=== PATIENT | female | born 1975 | race Caucasian/White ===

== ENCOUNTER 2021-12-02 09:50 | Inpatient (IN) | payer BC, OTHER ==
[~2021-12-02] VITALS: Ht 167.6 cm; Wt 66.1 kg
[2021-12-02 10:47] LABS: HEMATOCRIT 37.6 % (36.0-47.0); HEMOGLOBIN 12.3 g/dl (12.0-15.5); MEAN CORPUSCULAR HEMOGLOBIN 30.9 pg (27.0-33.0); MEAN CORPUSCULAR HGB CONC 32.7 g/dl (32.0-36.5); MEAN CORPUSCULAR VOLUME 94.5 fl (80.0-96.0); PLATELET COUNT, AUTOMATED 245 10^3/uL (150-450); RED BLOOD COUNT 3.98 10^6/uL (4.00-5.40); WHITE BLOOD COUNT 5.8 10^3/uL (4.0-10.0)
[2021-12-02 11:24] LABS: HCG, SERUM QUALITATIVE NEGATIVE (NEGATIVE)
[2021-12-02 11:44] LABS: ACETAMINOPHEN LEVEL < 2.0 UG/ML (10.0-30.0); ALBUMIN 3.8 GM/DL (3.2-5.2); ALT/SGPT 51 U/L (12-78); BILIRUBIN,DIRECT 0.1 MG/DL (0.0-0.2); BILIRUBIN,TOTAL 0.3 MG/DL (0.2-1.0); BLOOD UREA NITROGEN 10 MG/DL (7-18); CALCIUM LEVEL 9.1 MG/DL (8.5-10.1); CARBON DIOXIDE LEVEL 30 MEQ/L (21-32); CHLORIDE LEVEL 107 MEQ/L (98-107); CREATININE FOR GFR 0.84 MG/DL (0.55-1.30); ETHYL ALCOHOL (ETHANOL) < 0.003 % (0.000-0.010); GLOMERULAR FILTRATION RATE > 60.0 (>58); GLUCOSE, FASTING 157 MG/DL (70-100); POTASSIUM SERUM 4.1 MEQ/L (3.5-5.1); SODIUM LEVEL 141 MEQ/L (136-145); THYROID STIMULATING HORMONE 0.718 uIU/ML (0.358-3.740); TOTAL PROTEIN 6.9 GM/DL (6.4-8.2)
[2021-12-02 11:50] LABS: RSV AMPLIFICATION NEGATIVE (NEGATIVE)
[2021-12-02 16:14] LABS: AMPHETAMINES LEVEL URINE NEGATIVE (NEGATIVE); BARBITURATES URINE NEGATIVE (NEGATIVE); BENZODIAZEPINES URINE NEGATIVE (NEGATIVE); CANNABINOIDS URINE NEGATIVE (NEGATIVE); COCAINE METABOLITE URINE NEGATIVE (NEGATIVE); METHADONE URINE NEGATIVE (NEGATIVE); OPIATES URINE NEGATIVE (NEGATIVE); PHENCYCLIDINE URINE NEGATIVE (NEGATIVE)
[2021-12-03] MEDS ORDERED: IBUPROFEN 800 MG TAB PO ONE (04:40)
[2021-12-03] MEDS ORDERED: MULT-40 PO (07:04)
[2021-12-03] MEDS ORDERED: CALCTAB53 PO (07:04)
[2021-12-04] MEDS ORDERED: IBUPROFEN 800 MG TAB PO ONE (04:15)
[2021-12-04] MEDS ORDERED: MOM 30ML SUSPENSION UDC PO PRN (12:45)
[2021-12-04] MEDS ORDERED: MAALOX 30 ML SUSP *UDC PO PRN (12:45)
[2021-12-04] MEDS ORDERED: traZODone 50 MG TAB PO PRN (12:45)
[2021-12-04 15:22] VITALS: BP 130/65
[2021-12-04] MEDS: NICOTINE 21MG/24HR 1 EA TRANSDERMAL TD SCH (16:20)
[2021-12-04] MEDS: risperiDONE 1 MG TAB PO SCH (20:59)
[2021-12-04] MEDS: diphenhydrAMINE 25MG CAP PO PRN (21:00)
[2021-12-04] MEDS: IBUPROFEN 400MG TAB PO PRN (21:00)
[2021-12-04] MEDS: LORazepam 1 MG TAB PO PRN (23:58)
[2021-12-05 06:37] VITALS: BP 109/56
[2021-12-05] MEDS: risperiDONE 1 MG TAB PO SCH ×3 (09:00→20:18)
[2021-12-05] MEDS: NICOTINE 21MG/24HR 1 EA TRANSDERMAL TD SCH (09:55)
[2021-12-05 16:00] VITALS: BP 116/71
[2021-12-05 19:09] LABS: CHOLESTEROL RISK RATIO 2.453 (<5)
[2021-12-05] MEDS: diphenhydrAMINE 25MG CAP PO PRN (20:18)
[2021-12-06 06:40] VITALS: BP 90/53
[2021-12-06] MEDS: NICOTINE 21MG/24HR 1 EA TRANSDERMAL TD SCH (09:00)
[2021-12-06] MEDS: risperiDONE 1 MG TAB PO SCH ×2 (09:41→20:29)
[2021-12-06] MEDS ORDERED: PALIPERIDONE PAL 234MG/1.5ML INJ (INVEGA)(FREE PSY INPT ONLY) IM ONE (13:00)
[2021-12-06] MEDS: IBUPROFEN 400MG TAB PO PRN ×2 (13:31→20:29)
[2021-12-06 16:39] VITALS: BP 108/59
[2021-12-06] MEDS: LORazepam 1 MG TAB PO PRN (20:29)
[2021-12-06] MEDS: diphenhydrAMINE 25MG CAP PO PRN (21:13)
[2021-12-07 06:31] VITALS: BP 127/68
[2021-12-07] MEDS: risperiDONE 1 MG TAB PO SCH (09:00)
[2021-12-07] MEDS: NICOTINE 21MG/24HR 1 EA TRANSDERMAL TD SCH (09:45)
[2021-12-07 16:46] VITALS: BP 119/66
[2021-12-07] MEDS: diphenhydrAMINE 25MG CAP PO PRN (23:04)
[2021-12-08] MEDS: IBUPROFEN 400MG TAB PO PRN (04:19)
[2021-12-08 06:42] VITALS: BP 127/79
[2021-12-08] MEDS: NICOTINE 21MG/24HR 1 EA TRANSDERMAL TD SCH (09:00)
[2021-12-08 18:05] VITALS: BP 116/71
[2021-12-09] MEDS: diphenhydrAMINE 25MG CAP PO PRN ×2 (00:58→10:14)
[2021-12-09] MEDS: IBUPROFEN 400MG TAB PO PRN ×2 (00:59→10:17)
[2021-12-09] MEDS: LORazepam 1 MG TAB PO PRN ×2 (01:18→10:14)
[2021-12-09 06:25] VITALS: BP 103/59
[2021-12-09] MEDS: NICOTINE 21MG/24HR 1 EA TRANSDERMAL TD SCH (09:10)
[2021-12-09] MEDS ORDERED: PALIPERIDONE PAL 234MG/1.5ML INJ (INVEGA)(FREE PSY INPT ONLY) IM ONE (13:00)
[2021-12-09 18:04] VITALS: BP 145/61
[2021-12-09] MEDS: hydrOXYzine 50 MG TAB PO PRN (21:39)
[2021-12-10 06:20] VITALS: BP 118/71
[2021-12-10] MEDS: NICOTINE 21MG/24HR 1 EA TRANSDERMAL TD SCH (07:28)
[2021-12-10] MEDS: MULTIVITAMINS/MINERALS THERAP 1 TAB PO SCH (16:57)
[2021-12-10] MEDS: IBUPROFEN 400MG TAB PO PRN ×2 (16:58→23:02)
[2021-12-10 18:15] VITALS: BP 113/67
[2021-12-10] MEDS: hydrOXYzine 50 MG TAB PO PRN (23:10)
[2021-12-11 06:40] VITALS: BP 115/69
[2021-12-11] MEDS: NICOTINE 21MG/24HR 1 EA TRANSDERMAL TD SCH (09:36)
[2021-12-11] MEDS: MULTIVITAMINS/MINERALS THERAP 1 TAB PO SCH (09:36)
[2021-12-11 19:12] VITALS: BP 136/74
[2021-12-11] MEDS: hydrOXYzine 50 MG TAB PO PRN (23:25)
[2021-12-11] MEDS: IBUPROFEN 400MG TAB PO PRN (23:26)
[2021-12-12 06:31] VITALS: BP 117/71
[2021-12-12] MEDS ORDERED: HYDR50TA70 PO (08:42)
[2021-12-12] MEDS ORDERED: INVE234I IM (08:43)
[2021-12-12] MEDS: NICOTINE 21MG/24HR 1 EA TRANSDERMAL TD SCH (10:10)
[2021-12-12] MEDS: MULTIVITAMINS/MINERALS THERAP 1 TAB PO SCH (10:10)
[2021-12-12] MEDS ORDERED: HALOPERIDOL 5MG/ML VIAL (J1630 PER 1) IM STA (10:58)
[2021-12-12] MEDS ORDERED: LORazepam 2 MG/ML VIAL IM STA (10:58)
[2021-12-12] MEDS ORDERED: diphenhydrAMINE 50MG/ML VIAL (J1200) IM STA (10:58)
[2021-12-12] MEDS ORDERED: LORazepam 2 MG TAB PO STA (11:05)
[2021-12-12] MEDS ORDERED: diphenhydrAMINE 50MG CAP PO STA (11:05)
[2021-12-12] MEDS: DIVALPROEX 250 MG TAB PO SCH ×2 (11:14→21:32)
[2021-12-12 18:06] VITALS: BP 122/67
[2021-12-13 06:53] VITALS: BP 124/78
[2021-12-13] MEDS: DIVALPROEX 250 MG TAB PO SCH ×2 (09:00→21:00)
[2021-12-13] MEDS: NICOTINE 21MG/24HR 1 EA TRANSDERMAL TD SCH (09:09)
[2021-12-13] MEDS: MULTIVITAMINS/MINERALS THERAP 1 TAB PO SCH (09:09)
[2021-12-13] MEDS: IBUPROFEN 400MG TAB PO PRN ×2 (13:04→18:59)
[2021-12-13 18:09] VITALS: BP 122/62
[2021-12-13] MEDS: hydrOXYzine 50 MG TAB PO PRN (20:26)
[2021-12-14] MEDS: hydrOXYzine 50 MG TAB PO PRN (02:41)
[2021-12-14] MEDS: IBUPROFEN 400MG TAB PO PRN ×3 (02:42→18:46)
[2021-12-14 06:41] VITALS: BP 132/61
[2021-12-14] MEDS: DIVALPROEX 250 MG TAB PO SCH ×2 (07:35→21:00)
[2021-12-14] MEDS: NICOTINE 21MG/24HR 1 EA TRANSDERMAL TD SCH (08:48)
[2021-12-14] MEDS: MULTIVITAMINS/MINERALS THERAP 1 TAB PO SCH (08:48)
[2021-12-14 18:05] VITALS: BP 137/74
[2021-12-15] MEDS: IBUPROFEN 400MG TAB PO PRN ×3 (01:29→20:08)
[2021-12-15 06:36] VITALS: BP 115/61
[2021-12-15] MEDS: NICOTINE 21MG/24HR 1 EA TRANSDERMAL TD SCH (08:47)
[2021-12-15] MEDS: MULTIVITAMINS/MINERALS THERAP 1 TAB PO SCH (08:47)
[2021-12-15] MEDS: DIVALPROEX 250 MG TAB PO SCH ×2 (08:49→20:08)
[2021-12-15 16:12] VITALS: BP 128/62
[2021-12-15] MEDS: hydrOXYzine 50 MG TAB PO PRN (23:02)
[2021-12-16 05:48] VITALS: BP 129/82
[2021-12-16] MEDS: DIVALPROEX 250 MG TAB PO SCH ×2 (09:00→21:14)
[2021-12-16] MEDS: MULTIVITAMINS/MINERALS THERAP 1 TAB PO SCH (09:22)
[2021-12-16] MEDS: NICOTINE 21MG/24HR 1 EA TRANSDERMAL TD SCH (09:23)
[2021-12-16 16:41] VITALS: BP 122/60
[2021-12-16] MEDS: hydrOXYzine 50 MG TAB PO PRN (21:14)
[2021-12-17 06:37] VITALS: BP 111/62
[2021-12-17] MEDS: DIVALPROEX 250 MG TAB PO SCH ×2 (09:00→21:00)
[2021-12-17] MEDS: NICOTINE 21MG/24HR 1 EA TRANSDERMAL TD SCH (09:25)
[2021-12-17] MEDS: MULTIVITAMINS/MINERALS THERAP 1 TAB PO SCH (09:25)
[2021-12-17 16:20] VITALS: BP 116/64
[2021-12-17] MEDS: hydrOXYzine 50 MG TAB PO PRN (21:43)
[2021-12-18 06:30] VITALS: BP 113/70
[2021-12-18] MEDS: NICOTINE 21MG/24HR 1 EA TRANSDERMAL TD SCH (08:38)
[2021-12-18] MEDS: MULTIVITAMINS/MINERALS THERAP 1 TAB PO SCH (08:39)
[2021-12-18] MEDS: DIVALPROEX 250 MG TAB PO SCH ×2 (08:39→20:51)
[2021-12-18 18:12] VITALS: BP 135/71
[2021-12-18] MEDS: hydrOXYzine 50 MG TAB PO PRN (20:50)
[2021-12-19 06:54] VITALS: BP 106/68
[2021-12-19] MEDS: DIVALPROEX 250 MG TAB PO SCH ×2 (08:53→21:00)
[2021-12-19] MEDS: NICOTINE 21MG/24HR 1 EA TRANSDERMAL TD SCH (08:54)
[2021-12-19] MEDS: MULTIVITAMINS/MINERALS THERAP 1 TAB PO SCH (08:55)
[2021-12-19 16:04] VITALS: BP 130/71
[2021-12-19] MEDS: hydrOXYzine 50 MG TAB PO PRN (21:22)
[2021-12-20 06:42] VITALS: BP 109/72
[2021-12-20] MEDS: DIVALPROEX 250 MG TAB PO SCH ×2 (09:00→21:00)
[2021-12-20] MEDS: NICOTINE 21MG/24HR 1 EA TRANSDERMAL TD SCH (09:05)
[2021-12-20] MEDS: MULTIVITAMINS/MINERALS THERAP 1 TAB PO SCH (09:05)
[2021-12-20 16:34] VITALS: BP 113/57
[2021-12-20] MEDS: hydrOXYzine 50 MG TAB PO PRN (21:15)
[2021-12-21] MEDS: IBUPROFEN 400MG TAB PO PRN (05:07)
[2021-12-21 06:29] VITALS: BP 124/75
[2021-12-21] MEDS: DIVALPROEX 250 MG TAB PO SCH ×2 (09:00→21:00)
[2021-12-21] MEDS: MULTIVITAMINS/MINERALS THERAP 1 TAB PO SCH (09:19)
[2021-12-21] MEDS: NICOTINE 21MG/24HR 1 EA TRANSDERMAL TD SCH (09:19)
[2021-12-21 17:05] VITALS: BP 115/60
[2021-12-21] MEDS: hydrOXYzine 50 MG TAB PO PRN (20:31)
[2021-12-22 06:25] VITALS: BP 124/69
[2021-12-22] MEDS: NICOTINE 21MG/24HR 1 EA TRANSDERMAL TD SCH (08:44)
[2021-12-22] MEDS: MULTIVITAMINS/MINERALS THERAP 1 TAB PO SCH (08:45)
[2021-12-22] MEDS: DIVALPROEX 250 MG TAB PO SCH ×2 (08:49→20:15)
[2021-12-22] MEDS: hydrOXYzine 50 MG TAB PO PRN (20:16)
[2021-12-22] MEDS: IBUPROFEN 400MG TAB PO PRN (20:17)
[2021-12-23 06:44] VITALS: BP 138/72
[2021-12-23] MEDS: MULTIVITAMINS/MINERALS THERAP 1 TAB PO SCH (08:35)
[2021-12-23] MEDS: NICOTINE 21MG/24HR 1 EA TRANSDERMAL TD SCH (08:36)
[2021-12-23] MEDS: DIVALPROEX 250 MG TAB PO SCH (09:00)
== END 2021-12-23 14:14 | disposition home or self-care (01) | DRG 751 ==
LOC: M ED 09:50 → CANBEDREQ 12-03 12:55 → M ED INP 12-04 12:42 → M PSY 12-04 15:40
PROVIDERS: ADMIT Student in an Organized Health Care Education/Training Program; ATTEND Psychiatry & Neurology Psychiatry
DX: F29 Unspecified psychosis not due to a substance or known physiological condition (principal); F25.9 Schizoaffective disorder, unspecified; G47.00 Insomnia, unspecified; F17.200 Nicotine dependence, unspecified, uncomplicated; Z62.810 Personal history of physical and sexual abuse in childhood; Z62.811 Personal history of psychological abuse in childhood; Z81.8 Family history of other mental and behavioral disorders; Z91.128 Patient's intentional underdosing of medication regimen for other reason; Z79.899 Other long term (current) drug therapy; Z63.5 Disruption of family by separation and divorce; Z63.8 Other specified problems related to primary support group

== ENCOUNTER 2021-12-27 11:19 | Inpatient (IN) | payer BC, OTHER ==
[~2021-12-27] VITALS: Ht 167.6 cm; Wt 67.5 kg
[~2021-12-27 11:19] MED LIST: CALCTAB53 PO; HYDR50TA70 PO; INVE234I IM; MULT-40 PO
[2021-12-27] MEDS ORDERED: LORazepam 1 MG TAB PO STA (13:58)
[2021-12-27 14:52] LABS: HEMATOCRIT 35.5 % (36.0-47.0); HEMOGLOBIN 11.6 g/dl (12.0-15.5); MEAN CORPUSCULAR HEMOGLOBIN 30.1 pg (27.0-33.0); MEAN CORPUSCULAR HGB CONC 32.7 g/dl (32.0-36.5); MEAN CORPUSCULAR VOLUME 92.2 fl (80.0-96.0); PLATELET COUNT, AUTOMATED 219 10^3/uL (150-450); RED BLOOD COUNT 3.85 10^6/uL (4.00-5.40); WHITE BLOOD COUNT 6.6 10^3/uL (4.0-10.0)
[2021-12-27 15:02] LABS: AMPHETAMINES LEVEL URINE NEGATIVE (NEGATIVE); BARBITURATES URINE NEGATIVE (NEGATIVE); BENZODIAZEPINES URINE NEGATIVE (NEGATIVE); CANNABINOIDS URINE NEGATIVE (NEGATIVE); COCAINE METABOLITE URINE NEGATIVE (NEGATIVE); METHADONE URINE NEGATIVE (NEGATIVE); OPIATES URINE NEGATIVE (NEGATIVE); PHENCYCLIDINE URINE NEGATIVE (NEGATIVE)
[2021-12-27 15:07] LABS: RSV AMPLIFICATION NEGATIVE (NEGATIVE)
[2021-12-27 15:14] LABS: HCG, SERUM QUALITATIVE NEGATIVE (NEGATIVE)
[2021-12-27 15:23] LABS: ACETAMINOPHEN LEVEL < 2.0 UG/ML (10.0-30.0); ALBUMIN 3.5 GM/DL (3.2-5.2); ALT/SGPT 25 U/L (12-78); BILIRUBIN,DIRECT 0.1 MG/DL (0.0-0.2); BILIRUBIN,TOTAL 0.3 MG/DL (0.2-1.0); BLOOD UREA NITROGEN 14 MG/DL (7-18); CALCIUM LEVEL 8.9 MG/DL (8.5-10.1); CARBON DIOXIDE LEVEL 28 MEQ/L (21-32); CHLORIDE LEVEL 109 MEQ/L (98-107); ETHYL ALCOHOL (ETHANOL) < 0.003 % (0.000-0.010); GLOMERULAR FILTRATION RATE > 60.0 (>58); GLUCOSE, FASTING 122 MG/DL (70-100); POTASSIUM SERUM 3.7 MEQ/L (3.5-5.1); SALICYLATE LEVEL < 1.7 MG/DL (5.0-30.0); SODIUM LEVEL 140 MEQ/L (136-145); THYROID STIMULATING HORMONE 0.586 uIU/ML (0.358-3.740); TOTAL PROTEIN 6.2 GM/DL (6.4-8.2)
[2021-12-27] MEDS ORDERED: HYDR50TA70 PO (19:27)
[2021-12-27] MEDS ORDERED: INVE234I IM (19:27)
[2021-12-27] MEDS ORDERED: HOME MED LIST COMPLETE! XX SCH (19:30)
[2021-12-28] MEDS: hydrOXYzine 50 MG TAB PO PRN (12:21)
[2021-12-29] MEDS: hydrOXYzine 50 MG TAB PO PRN ×2 (00:26→08:24)
[2021-12-29] MEDS ORDERED: IBUPROFEN 600MG TAB PO ONE (21:00)
[2021-12-29] MEDS ORDERED: hydrOXYzine 50 MG TAB PO STA (21:11)
[2021-12-30] MEDS ORDERED: ALPRAZolam 0.5 MG TAB PO ONE (02:40)
[2021-12-30] MEDS ORDERED: MOM 30ML SUSPENSION UDC PO PRN (12:55)
[2021-12-30] MEDS ORDERED: traZODone 50 MG TAB PO PRN (12:55)
[2021-12-30 15:19] LABS: RSV AMPLIFICATION NEGATIVE (NEGATIVE)
[2021-12-30 16:07] VITALS: BP 141/80
[2021-12-30] MEDS: IBUPROFEN 400MG TAB PO PRN (22:20)
[2021-12-30] MEDS: hydrOXYzine 50 MG TAB PO PRN (22:21)
[2021-12-31] MEDS: OLANZapine ORAL DISINTEGRATING TAB 5MG PO PRN (00:02)
[2021-12-31] MEDS ORDERED: LORazepam 1 MG TAB PO ONE (00:20)
[2021-12-31 07:32] VITALS: BP 109/62
[2021-12-31] MEDS: NICOTINE 21MG/24HR 1 EA TRANSDERMAL TD SCH (08:49)
[2021-12-31] MEDS: lamoTRIgine 25MG TAB PO SCH (10:26)
[2021-12-31 16:32] VITALS: BP 103/63
[2021-12-31] MEDS: hydrOXYzine 50 MG TAB PO PRN (20:29)
[2021-12-31] MEDS: IBUPROFEN 400MG TAB PO PRN (20:30)
[2022-01-01] MEDS: lamoTRIgine 25MG TAB PO SCH (09:00)
[2022-01-01] MEDS: NICOTINE 21MG/24HR 1 EA TRANSDERMAL TD SCH (09:01)
[2022-01-01] MEDS: MULTIVITAMINS/MINERALS THERAP 1 TAB PO SCH (11:35)
[2022-01-01] MEDS: ARIPiprazole 15 MG TAB (AbiLIFY) PO SCH (11:36)
[2022-01-01] MEDS: IBUPROFEN 400MG TAB PO PRN ×2 (16:11→23:43)
[2022-01-01 18:22] VITALS: BP 133/77
[2022-01-01] MEDS: hydrOXYzine 50 MG TAB PO PRN (21:33)
[2022-01-01] MEDS: OLANZapine ORAL DISINTEGRATING TAB 5MG PO PRN (23:43)
[2022-01-02 06:16] VITALS: BP 103/61
[2022-01-02] MEDS: ARIPiprazole 15 MG TAB (AbiLIFY) PO SCH (09:00)
[2022-01-02] MEDS: lamoTRIgine 25MG TAB PO SCH (09:00)
[2022-01-02] MEDS: MULTIVITAMINS/MINERALS THERAP 1 TAB PO SCH (09:07)
[2022-01-02] MEDS: NICOTINE 21MG/24HR 1 EA TRANSDERMAL TD SCH (09:09)
[2022-01-02] MEDS: IBUPROFEN 400MG TAB PO PRN (11:20)
[2022-01-02 16:17] VITALS: BP 104/60
[2022-01-02] MEDS: hydrOXYzine 50 MG TAB PO PRN (21:48)
[2022-01-03 06:27] VITALS: BP 139/71
[2022-01-03] MEDS: NICOTINE 21MG/24HR 1 EA TRANSDERMAL TD SCH (07:30)
[2022-01-03] MEDS: IBUPROFEN 400MG TAB PO PRN ×2 (07:30→16:15)
[2022-01-03] MEDS: ARIPiprazole 15 MG TAB (AbiLIFY) PO SCH (09:00)
[2022-01-03] MEDS: lamoTRIgine 25MG TAB PO SCH (09:00)
[2022-01-03] MEDS: MULTIVITAMINS/MINERALS THERAP 1 TAB PO SCH (09:19)
[2022-01-03] MEDS ORDERED: OLANZapine 5 MG TAB PO SCH (10:55)
[2022-01-03] MEDS: OLANZapine ORAL DISINTEGRATING TAB 5MG PO PRN (10:59)
[2022-01-03 16:10] VITALS: BP 104/57
[2022-01-03] MEDS: OLANZapine 10 MG TAB PO SCH (19:02)
[2022-01-03] MEDS: hydrOXYzine 50 MG TAB PO PRN (19:03)
[2022-01-03] MEDS ORDERED: DIVALPROEX 250MG *ER* TAB PO SCH (21:00)
[2022-01-04 06:35] VITALS: BP 118/62
[2022-01-04] MEDS: MULTIVITAMINS/MINERALS THERAP 1 TAB PO SCH (08:28)
[2022-01-04] MEDS: IBUPROFEN 400MG TAB PO PRN (08:28)
[2022-01-04] MEDS: OLANZapine 10 MG TAB PO SCH ×2 (08:28→20:50)
[2022-01-04] MEDS: NICOTINE 21MG/24HR 1 EA TRANSDERMAL TD SCH (08:29)
[2022-01-04] MEDS: lamoTRIgine 25MG TAB PO SCH (08:30)
[2022-01-04] MEDS: OXcarbazepine 150 MG TAB PO SCH ×2 (09:54→20:51)
[2022-01-04] MEDS: OMEGA-3 1000MG CAPSULE PO SCH ×2 (09:54→20:50)
[2022-01-04] MEDS: VITAMIN D 1,000 INTERNATIONAL UNITS TABLET PO SCH (09:54)
[2022-01-04 16:17] VITALS: BP 107/63
[2022-01-04] MEDS: hydrOXYzine 50 MG TAB PO PRN (20:50)
[2022-01-05] MEDS: IBUPROFEN 400MG TAB PO PRN (07:01)
[2022-01-05] MEDS: NICOTINE 21MG/24HR 1 EA TRANSDERMAL TD SCH (09:33)
[2022-01-05] MEDS: MULTIVITAMINS/MINERALS THERAP 1 TAB PO SCH (09:34)
[2022-01-05] MEDS: OMEGA-3 1000MG CAPSULE PO SCH ×2 (09:34→20:47)
[2022-01-05] MEDS: VITAMIN D 1,000 INTERNATIONAL UNITS TABLET PO SCH (09:34)
[2022-01-05] MEDS: OXcarbazepine 150 MG TAB PO SCH ×2 (09:36→20:47)
[2022-01-05] MEDS: OLANZapine 10 MG TAB PO SCH ×2 (09:36→20:46)
[2022-01-05] MEDS: hydrOXYzine 50 MG TAB PO PRN ×3 (10:02→20:47)
[2022-01-05] MEDS: OLANZapine ORAL DISINTEGRATING TAB 5MG PO PRN ×2 (10:03→14:57)
[2022-01-05 18:17] VITALS: BP 117/56
[2022-01-06 06:12] VITALS: BP 103/54
[2022-01-06] MEDS: OMEGA-3 1000MG CAPSULE PO SCH ×2 (08:42→20:33)
[2022-01-06] MEDS: OLANZapine 10 MG TAB PO SCH ×2 (08:42→20:33)
[2022-01-06] MEDS: VITAMIN D 1,000 INTERNATIONAL UNITS TABLET PO SCH (08:43)
[2022-01-06] MEDS: OXcarbazepine 150 MG TAB PO SCH ×2 (08:43→20:33)
[2022-01-06] MEDS: NICOTINE 21MG/24HR 1 EA TRANSDERMAL TD SCH (08:43)
[2022-01-06] MEDS: MULTIVITAMINS/MINERALS THERAP 1 TAB PO SCH (08:43)
[2022-01-06] MEDS: IBUPROFEN 400MG TAB PO PRN (14:31)
[2022-01-06] MEDS: hydrOXYzine 50 MG TAB PO PRN (19:04)
[2022-01-06] MEDS: MAALOX 30 ML SUSP *UDC PO PRN (22:15)
[2022-01-07 07:00] VITALS: BP 120/78
[2022-01-07] MEDS: OXcarbazepine 150 MG TAB PO SCH ×2 (08:46→20:08)
[2022-01-07] MEDS: VITAMIN D 1,000 INTERNATIONAL UNITS TABLET PO SCH (08:46)
[2022-01-07] MEDS: OMEGA-3 1000MG CAPSULE PO SCH ×2 (08:46→20:08)
[2022-01-07] MEDS: OLANZapine 10 MG TAB PO SCH (08:46)
[2022-01-07] MEDS: MULTIVITAMINS/MINERALS THERAP 1 TAB PO SCH (08:46)
[2022-01-07] MEDS: NICOTINE 21MG/24HR 1 EA TRANSDERMAL TD SCH (08:47)
[2022-01-07] MEDS: hydrOXYzine 50 MG TAB PO PRN (11:46)
[2022-01-07] MEDS: OLANZapine ORAL DISINTEGRATING TAB 5MG PO PRN (14:57)
[2022-01-07] MEDS ORDERED: OLANZapine ORAL DISINTEGRATING TAB 5MG PO PRN (15:40)
[2022-01-07] MEDS ORDERED: BENZTROPINE 1 MG TAB PO PRN (15:40)
[2022-01-07 19:18] VITALS: BP 118/75
[2022-01-07] MEDS: OLANZapine 5 MG TAB PO SCH (20:09)
[2022-01-08 06:43] VITALS: BP 108/70
[2022-01-08] MEDS: OMEGA-3 1000MG CAPSULE PO SCH ×2 (08:42→21:23)
[2022-01-08] MEDS: NICOTINE 21MG/24HR 1 EA TRANSDERMAL TD SCH (08:43)
[2022-01-08] MEDS: OLANZapine 5 MG TAB PO SCH ×2 (08:43→21:23)
[2022-01-08] MEDS: VITAMIN D 1,000 INTERNATIONAL UNITS TABLET PO SCH (08:43)
[2022-01-08] MEDS: OXcarbazepine 150 MG TAB PO SCH (08:43)
[2022-01-08] MEDS: MULTIVITAMINS/MINERALS THERAP 1 TAB PO SCH (08:43)
[2022-01-08] MEDS: hydrOXYzine 50 MG TAB PO PRN ×2 (09:51→21:23)
[2022-01-08] MEDS: IBUPROFEN 400MG TAB PO PRN (09:52)
[2022-01-08 17:52] VITALS: BP 106/60
[2022-01-08] MEDS: traZODone 100 MG TAB PO SCH (21:00)
[2022-01-08] MEDS: OXcarbazepine 300 MG TAB PO SCH (21:23)
[2022-01-09 06:19] VITALS: BP 97/58
[2022-01-09] MEDS: NICOTINE 21MG/24HR 1 EA TRANSDERMAL TD SCH (08:12)
[2022-01-09] MEDS: OMEGA-3 1000MG CAPSULE PO SCH ×2 (08:12→21:12)
[2022-01-09] MEDS: VITAMIN D 1,000 INTERNATIONAL UNITS TABLET PO SCH (08:12)
[2022-01-09] MEDS: OLANZapine 5 MG TAB PO SCH ×2 (08:12→21:12)
[2022-01-09] MEDS: MULTIVITAMINS/MINERALS THERAP 1 TAB PO SCH (08:12)
[2022-01-09] MEDS: OXcarbazepine 300 MG TAB PO SCH ×2 (08:13→21:12)
[2022-01-09] MEDS: hydrOXYzine 50 MG TAB PO PRN ×2 (10:06→19:18)
[2022-01-09] MEDS: IBUPROFEN 400MG TAB PO PRN (14:19)
[2022-01-09 17:00] VITALS: BP 124/74
[2022-01-09] MEDS: traZODone 100 MG TAB PO SCH (21:00)
[2022-01-10 06:52] VITALS: BP 159/89
[2022-01-10] MEDS: OMEGA-3 1000MG CAPSULE PO SCH ×2 (08:25→21:47)
[2022-01-10] MEDS: MULTIVITAMINS/MINERALS THERAP 1 TAB PO SCH (08:25)
[2022-01-10] MEDS: NICOTINE 21MG/24HR 1 EA TRANSDERMAL TD SCH (08:25)
[2022-01-10] MEDS: OLANZapine 5 MG TAB PO SCH ×2 (08:25→21:47)
[2022-01-10] MEDS: VITAMIN D 1,000 INTERNATIONAL UNITS TABLET PO SCH (08:25)
[2022-01-10] MEDS: OXcarbazepine 300 MG TAB PO SCH ×2 (08:26→21:47)
[2022-01-10] MEDS: IBUPROFEN 400MG TAB PO PRN (10:31)
[2022-01-10] MEDS: hydrOXYzine 50 MG TAB PO PRN (17:29)
[2022-01-10] MEDS: MAALOX 30 ML SUSP *UDC PO PRN (18:15)
[2022-01-10 18:17] VITALS: BP 124/58
[2022-01-10] MEDS: traZODone 100 MG TAB PO SCH (21:00)
[2022-01-11 06:27] VITALS: BP 127/61
[2022-01-11] MEDS: OMEGA-3 1000MG CAPSULE PO SCH ×2 (08:30→19:44)
[2022-01-11] MEDS: VITAMIN D 1,000 INTERNATIONAL UNITS TABLET PO SCH (08:31)
[2022-01-11] MEDS: OLANZapine 5 MG TAB PO SCH ×2 (08:32→19:44)
[2022-01-11] MEDS: OXcarbazepine 300 MG TAB PO SCH ×2 (08:32→19:45)
[2022-01-11] MEDS: MULTIVITAMINS/MINERALS THERAP 1 TAB PO SCH (08:32)
[2022-01-11] MEDS: NICOTINE 21MG/24HR 1 EA TRANSDERMAL TD SCH (08:32)
[2022-01-11] MEDS: hydrOXYzine 50 MG TAB PO PRN ×2 (12:37→19:44)
[2022-01-11] MEDS: IBUPROFEN 400MG TAB PO PRN (13:29)
[2022-01-11 17:42] VITALS: BP 116/57
[2022-01-11] MEDS: traZODone 100 MG TAB PO SCH (19:45)
[2022-01-12 08:06] VITALS: BP 117/56
[2022-01-12] MEDS: OXcarbazepine 300 MG TAB PO SCH ×2 (09:00→20:13)
[2022-01-12] MEDS: OLANZapine 5 MG TAB PO SCH ×2 (09:39→20:15)
[2022-01-12] MEDS: VITAMIN D 1,000 INTERNATIONAL UNITS TABLET PO SCH (09:39)
[2022-01-12] MEDS: OMEGA-3 1000MG CAPSULE PO SCH ×2 (09:39→20:15)
[2022-01-12] MEDS: MULTIVITAMINS/MINERALS THERAP 1 TAB PO SCH (09:39)
[2022-01-12] MEDS: NICOTINE 21MG/24HR 1 EA TRANSDERMAL TD SCH (09:39)
[2022-01-12] MEDS ORDERED: PALIPERIDONE PAL 234MG/1.5ML INJ (INVEGA)(FREE PSY INPT ONLY) IM ONE (12:00)
[2022-01-12 16:15] VITALS: BP 110/59
[2022-01-12] MEDS: traZODone 100 MG TAB PO SCH (20:13)
[2022-01-12] MEDS: hydrOXYzine 50 MG TAB PO PRN (20:15)
[2022-01-13] MEDS: hydrOXYzine 50 MG TAB PO PRN ×2 (04:10→20:22)
[2022-01-13 06:30] VITALS: BP 142/72
[2022-01-13] MEDS: OLANZapine 5 MG TAB PO SCH ×2 (08:41→20:22)
[2022-01-13] MEDS: VITAMIN D 1,000 INTERNATIONAL UNITS TABLET PO SCH (08:42)
[2022-01-13] MEDS: NICOTINE 21MG/24HR 1 EA TRANSDERMAL TD SCH (08:42)
[2022-01-13] MEDS: OMEGA-3 1000MG CAPSULE PO SCH ×2 (08:42→20:22)
[2022-01-13] MEDS: MULTIVITAMINS/MINERALS THERAP 1 TAB PO SCH (08:42)
[2022-01-13] MEDS: OXcarbazepine 300 MG TAB PO SCH ×2 (08:43→20:21)
[2022-01-13] MEDS: IBUPROFEN 400MG TAB PO PRN (12:28)
[2022-01-13 16:29] VITALS: BP 117/59
[2022-01-13] MEDS: traZODone 100 MG TAB PO SCH (20:21)
[2022-01-14 06:42] VITALS: BP 99/63
[2022-01-14] MEDS: NICOTINE 21MG/24HR 1 EA TRANSDERMAL TD SCH (07:54)
[2022-01-14] MEDS: OMEGA-3 1000MG CAPSULE PO SCH ×2 (07:54→20:46)
[2022-01-14] MEDS: VITAMIN D 1,000 INTERNATIONAL UNITS TABLET PO SCH (07:54)
[2022-01-14] MEDS: OLANZapine 5 MG TAB PO SCH ×2 (07:54→20:46)
[2022-01-14] MEDS: OXcarbazepine 300 MG TAB PO SCH ×2 (07:55→20:45)
[2022-01-14] MEDS: MULTIVITAMINS/MINERALS THERAP 1 TAB PO SCH (07:55)
[2022-01-14] MEDS: hydrOXYzine 50 MG TAB PO PRN ×2 (11:54→20:46)
[2022-01-14 15:51] VITALS: BP 107/58
[2022-01-14] MEDS: traZODone 100 MG TAB PO SCH (20:45)
[2022-01-15 06:07] VITALS: BP 120/66
[2022-01-15] MEDS: OXcarbazepine 300 MG TAB PO SCH ×2 (08:34→20:42)
[2022-01-15] MEDS: NICOTINE 21MG/24HR 1 EA TRANSDERMAL TD SCH (08:37)
[2022-01-15] MEDS: OMEGA-3 1000MG CAPSULE PO SCH ×2 (08:37→20:39)
[2022-01-15] MEDS: VITAMIN D 1,000 INTERNATIONAL UNITS TABLET PO SCH (08:37)
[2022-01-15] MEDS: OLANZapine 5 MG TAB PO SCH ×2 (08:38→20:39)
[2022-01-15] MEDS: MULTIVITAMINS/MINERALS THERAP 1 TAB PO SCH (08:38)
[2022-01-15] MEDS: IBUPROFEN 400MG TAB PO PRN (11:26)
[2022-01-15 18:27] VITALS: BP 115/62
[2022-01-15] MEDS: hydrOXYzine 50 MG TAB PO PRN (20:39)
[2022-01-15] MEDS: traZODone 100 MG TAB PO SCH (20:42)
[2022-01-16 06:43] VITALS: BP 119/60
[2022-01-16] MEDS: OXcarbazepine 300 MG TAB PO SCH (09:00)
[2022-01-16] MEDS: VITAMIN D 1,000 INTERNATIONAL UNITS TABLET PO SCH (09:16)
[2022-01-16] MEDS: OLANZapine 5 MG TAB PO SCH (09:16)
[2022-01-16] MEDS: OMEGA-3 1000MG CAPSULE PO SCH (09:16)
[2022-01-16] MEDS: NICOTINE 21MG/24HR 1 EA TRANSDERMAL TD SCH (09:16)
[2022-01-16] MEDS: MULTIVITAMINS/MINERALS THERAP 1 TAB PO SCH (09:16)
[2022-01-16] MEDS ORDERED: INVE234I IM (10:01)
[2022-01-16] MEDS ORDERED: OLAN1TAB16 PO (10:01)
[2022-01-16] MEDS ORDERED: FISH1CAP26 PO (10:01)
[2022-01-16] MEDS ORDERED: BENZ-52 PO (10:01)
[2022-01-16] MEDS ORDERED: HYDR50TA70 PO (10:01)
[2022-01-16] MEDS ORDERED: NICO21PAT TD (10:01)
[2022-01-16] MEDS ORDERED: VITAD1000T PO (10:01)
[2022-01-16] MEDS ORDERED: VITMTA PO (10:01)
[2022-01-16] MEDS: hydrOXYzine 50 MG TAB PO PRN (11:38)
== END 2022-01-16 13:17 | disposition home or self-care (01) | DRG 750 ==
LOC: M ED 11:19 → M ED INP 12-30 12:51 → M PSY 12-30 16:01
PROVIDERS: ADMIT Psychiatry & Neurology Psychiatry; ATTEND Psychiatry & Neurology Psychiatry
DX: F25.0 Schizoaffective disorder, bipolar type (principal); F17.210 Nicotine dependence, cigarettes, uncomplicated; Z81.8 Family history of other mental and behavioral disorders; Z20.822 Contact with and (suspected) exposure to COVID-19; Z79.899 Other long term (current) drug therapy; G47.00 Insomnia, unspecified; Z62.810 Personal history of physical and sexual abuse in childhood; Z62.811 Personal history of psychological abuse in childhood; Z63.8 Other specified problems related to primary support group